=== PATIENT | male | born 2000 | race Asian ===

== ENCOUNTER 2023-03-02 00:46 | Emergency (ER) | payer OTHER, SELFPAY ==
[2023-03-02] VITALS (26 sets, daily range): BP systolic 109–139; BP diastolic 42–92; PULSE 73–97; RESP 13–22; TEMP 36.3–36.9; O2SAT 98–100
--- NOTE | ~2023-03-02 | XR_ITS ---
EXAMINATION: XR shoulder RT min 2V DATE: 03/02/2023 03:54 INDICATION: Right shoulder dislocation status post reduction. TECHNIQUE: 2 views of right shoulder were obtained. COMPARISON: Right shoulder radiographs at 1:00 AM. FINDINGS: Bone alignment is normal. There is an impaction fracture deformity of posterolateral aspect of humeral head (Hill-Sachs fracture deformity). There is mild osteoarthritis of acromioclavicular j oint. Glenohumeral joint is normal. IMPRESSION: 1. Normal alignment at glenohumeral joint. 2. Hill-Sachs fracture deformity. Reviewed, dictated and finalized at location E.
--- NOTE | ~2023-03-02 | XR_ITS ---
EXAMINATION: XR shoulder RT min 2V DATE: 03/02/2023 01:06 INDICATION: Right shoulder injury and pain. TECHNIQUE: 2 views of right shoulder were obtained. COMPARISON: None. FINDINGS: There is anterior dislocation of humeral head with respect to glenoid. No visible fracture. There is mild osteoarthritis of acromioclavicular joint. IMPRESSION: 1. Anterior right shoulder dislocation. Reviewed, dictated and finalized at location E.
[2023-03-02] MEDS: IBUPROFEN 400 MG TABLET PO (01:27)
--- NOTE | 2023-03-02 01:48 | ED.UPPEXIN ---
HPI - Extremity Injury (Upper) General Chief Complaint: Extremity Injury, Upper Stated Complaint: right hand injury Time Seen by Provider: 03/02/23 01:12 Source: patient Limitations: no limitations History of Present Illness HPI narrative: Patient is a 22-year-old male presents to the emergency department complaining of a right shoulder injury. Patient states just prior to arrival he was holding onto the railing of some steps and he slipped but ended up holding onto the railing and developed pain in his right shoulder with decreased mobility signs. Patient denies history of shoulder injuries or dislocations. Patient denies numbness, weakness, recent illness, recent injuries. Patient denies hitting his head or passing out. Patient has not taken anything for the pain and notes that the pain is over his right shoulder and is nonradiating. Related Data Allergies Allergy/AdvReac Type Severity Reaction Status Date / Time No Known Allergies Allergy Verified 03/02/23 01:12 Review of Systems Review of Systems: A 10 system review of systems was completed on the patient and is negative except for what is stated in the HPI. Nursing and ancillary documentation was reviewed. PMFSH Comments At time of signature, I have reviewed and agree with nursing past medical, surgical, social and family history unless otherwise noted. Please see the nursing chart for further information. There is no relevant family history pertinent to the presenting complaint. Exam Narrative: CONST: No acute distress. Well nourished. HENMT: Head is normocephalic and atraumatic. Moist mucous membranes. No posterior oropharynx erythema. EYES: No conjunctival icterus, injection, or pallor. PERRL. NECK: No meningeal signs. RESP: Able to speak in full sentences. Normal respiratory effort. CTAB. CARDIO: Regular rate. Regular rhythm. 2+ DP and radial pulses bilaterally. GI: Nondistended. No tenderness to palpation. Soft. : No CVA tenderness to palpation. SKIN: No rashes or lesions noted on exposed skin. NEURO: Oriented x3. Moves all extremities. Sensation intact to light touch throughout the axillary and median and radial and ulnar nerve distributions. EXTREM: No pedal edema. Mild tenderness to palpation of the right shoulder diffusely, empty sulcus on palpation. Patient is holding his right upper extremity in abduction. Patient is able to flex the bilateral elbows and extend them without difficulty and has 5 out of 5 show girl strength in bilateral hands. Range of motion limited secondary to pain of the right shoulder. PSYCH: Normal affect. Course Vital Signs Vital signs: Vital Signs Temperature 97.3 F L 03/02/23 00:49 Pulse Rate 90 03/02/23 00:49 Respiratory Rate 18 03/02/23 00:49 Blood Pressure 129/81 03/02/23 00:49 Pulse Oximetry 98 03/02/23 00:49 Oxygen Delivery Room Air 03/02/23 00:49 Temperature 98.1 F 03/02/23 04:14 Pulse Rate 78 03/02/23 04:14 Respiratory Rate 15 03/02/23 04:14 Blood Pressure 120/78 03/02/23 04:14 Pulse Oximetry 100 03/02/23 04:14 Oxygen Delivery Room Air 03/02/23 04:14 Oxygen Flow Rate 2 03/02/23 03:44 Procedures Orthopedic Joint Reduction Joint #1: Orthopedic Joint Reduction Date: 03/02/23 Orthopedic Joint Reduction Time: 03:45 Time Out Performed: Yes Side: right Joint Reduction Location: shoulder Analgesia: procedural sedation Pre-Procedure Neuro Vascular Exam: normal Shoulder Technique Used (if applicable): other (Chun) Post-reduction neuro exam: intact Post-reduction vascular: intact Post Reduction X-Ray Obtained: Yes Post Reduction X-Ray Results: reduced Splint Applied: Yes Patient Tolerated Procedure: well and no complications Procedural Sedation Procedural Sedation #1: Procedural Sedation Date: 03/02/23 Procedural Sedation Time: 03:33 Presedation Evaluation
[2023-03-02] MEDS: PROPOFOL IV EMULSION 200 MG/20 ML VIAL IV PUSH (04:08)
--- NOTE | 2023-03-02 04:24 | PC.NURSE ---
0330 - timeout performed by Dr. Grant. Consent obtained. Crash cart, suction, end tidal, ambu bag in place. pt on monitor. correct pt, procedure, and location verified. 0333 - Dr. Grant pushed 8mL propofol. 0334 - intra procedure documentation started. 0339 - procedure done, no additional SM given. Dr. Grant VORB post reduction xray 0344 - post procedure documentation started.
== END 2023-03-02 04:58 | disposition home or self-care (01) ==
PROVIDERS: Emergency Provider Student in an Organized Health Care Education/Training Program
DX: S43.014A Anterior dislocation of right humerus, initial encounter (principal); W01.0XXA Fall on same level from slipping, tripping and stumbling without subsequent striking against object, initial encounter
CPT/HCPCS: 23650; 73030; 99285; A9270; J2704

== ENCOUNTER 2023-05-15 10:55 | Emergency (ER) | payer SELFPAY ==
--- NOTE | ~2023-05-15 | CT_ITS ---
EXAMINATION: CT abdomen pelvis w con DATE: 05/15/2023 12:14 INDICATION: Right upper quadrant abdominal pain. Nausea. TECHNIQUE: Computed tomography (CT) of the abdomen and pelvis was performed with 100 mL Omnipaque 350 intravenous contrast. Automated exposure control and iterative reconstruction technique were employe d. The dose-length product was 531.07 mGy-cm. COMPARISON: None. FINDINGS: The visualized portions of the lung bases are clear without pneumonia or pleural effusion. The heart size is normal. No pericardial effusion. The liver is normal. The gallbladder is absent. Th e spleen, pancreas, adrenal glands, and kidneys are normal. There are no dilated loops of bowel. The appendix is normal. There are no pathologically enlarged lymph nodes. There is no free intraperitonea l fluid. There is mild thoracic and lumbar spondylosis. IMPRESSION: 1. No etiology for the patient's symptoms. Reviewed, dictated and finalized at location A. [facility]
[2023-05-15 10:56] VITALS: BP 135/88; PULSE 79; RESP 16; TEMP 36.4; O2SAT 100
[2023-05-15 11:31] VITALS: BP 131/93; PULSE 78; RESP 16; O2SAT 100
[2023-05-15 11:40] LABS: Basophils Percent Auto 0.4 % (0.2-1.2); Eosinophils Absolute Auto 0.1 K/mm3 (0-0.3); Eosinophils Percent Auto 1.4 % (0-4.4); Hemoglobin 15.8 g/dL (14.0-18.0); Immature Granulocyte Absolute 0.01 K/mm3 (0.00-0.031); Immature Granulocyte Percent A 0.1 % (0-0.5); Lymphocytes Percent Auto 18.3 % (18.3-44.2); Mean Corpuscular HGB Conc 32.2 g/dl (32-36); Mean Corpuscular Hemoglobin 28.7 pg (26-34); Mean Corpuscular Volume 89.1 fl (80-100); Mean Platelet Volume 10.2 fl (7.4-10.4); Monocytes Absolute Auto 0.6 K/mm3 (0.1-0.6); Monocytes Percent Auto 8.3 % (2.6-8.5); Neutrophils Absolute Auto 5.1 K/mm3 (1.3-6.7); Neutrophils Percent Auto 71.5 % (45.5-73.1); Platelet Count Result 245 k/mm3 (150-375); Red Cell Distribution Width 12.3 % (11.5-14.5); White Blood Count 7.1 K/mm3 (4.5-10.0)
[2023-05-15 11:46] LABS: Appearance Urine Cloudy (Clear); Bacteria Urine None Seen /hpf; Bilirubin Urine Negative (Negative); Blood Urine Negative (Negative); Color Urine Dark Yellow (Yellow); Glucose Urine UA Negative (Negative); Ketones Urine Trace mg/dL (Negative); Leukocyte Esterase Ur 1+ LEU/UL (Negative); Nitrate Urine Negative (Negative); Protein Urine Trace mg/dL (Negative); RBC Urine 0-2 /hpf (0-2); Squamous Epithelial Cell Urine None seen /hpf (Few); WBC Urine 21-50 /hpf; pH Urine 5.5 (5.0-9.0)
[2023-05-15 11:49] LABS: Add Urine Microscopic? YES
[2023-05-15 11:50] LABS: Alanine Aminotransferase 77 U/L (6-50); Albumin Level 4.7 g/dL (3.5-5.1); Alkaline Phosphatase 77 U/L (38-126); Anion Gap 10 mmol/L (8-16); Aspartate Amino Transferase 33 U/L (17-59); Bilirubin,Total 0.8 mg/dL (0.2-1.3); Blood Urea Nitrogen 9 mg/dL (9-20); Calcium 9.5 mg/dL (8.4-10.2); Carbon Dioxide 27 mmol/L (22-30); Chloride 103 mmol/L (98-107); Estimated CRCL calculation 100 ml/min; Estimated Glomerular Filt Rate > 60; Glucose 96 mg/dL (65-110); Lipase 35 U/L (23-300); Potassium 3.9 mmol/L (3.4-5.0); Sodium 140 mmol/L (137-145)
--- NOTE | 2023-05-15 12:42 | ED.ABDPAIN ---
HPI - Abdominal Pain General Chief Complaint: Abdominal Pain Stated Complaint: abdomen Time Seen by Provider: 05/15/23 12:42 Source: patient Mode of arrival: ambulatory Limitations: no limitations History of Present Illness HPI narrative: 23 YEARS OLD MALE CAME TO THE EMERGENCY ROOM BY PRIVATE CAR COMPLAINING OF ABDOMINAL BLOATING FOR OVER 2 MONTHS, GOT PAIN RIGHT UPPER QUADRANT, EPIGASTRIC AND SOMETIMES DIFFUSE OVER THE LAST 3 DAYS ASSOCIATED WITH NAUSEA MAY BE CHILLS MAYBE FEVER. HE DENIES ANY HISTORY OF ABDOMINAL SURGERY, DOES NOT TAKE MEDICINE AT HOME. HE DENIES AGGRAVATING OR RELIEVING FACTORS MAYBE LIGHT FOOD MAKE IT FEEL BETTER Related Data Allergies Allergy/AdvReac Type Severity Reaction Status Date / Time No Known Allergies Allergy Verified 05/15/23 11:30 Review of Systems Review of Systems: All systems reviewed & are unremarkable except as noted in HPI and below PMFSH Social History Social History Smoking status: Never smoker Alcohol intake: never Substance use: never Occupation/Education: student Gender identity (if verbalized by the patient): Male Exam Narrative: GENERAL APPEARANCE: WELL-DEVELOPED, WELL-NOURISHED SKIN: NORMAL COLOR HEAD: NORMOCEPHALIC, NONTRAUMATIC EYES: CLEAR CONJUNCTIVA ENT: OROPHARYNX NORMAL, EARS NORMAL, NOSE NORMAL NECK: SUPPLE, NONTENDER CHEST AND RESPIRATORY: AIRWAY PATENT, NO RESPIRATORY DISTRESS, NO ACCESSORY MUSCLE USE HEART: REGULAR RATE/RHYTHM ABDOMEN: SOFT, SLIGHT EPIGASTRIC TENDERNESS, NO ORGANOMEGALY, QUIET BOWEL SOUNDS VASCULAR: NORMAL PERIPHERAL PULSES, NORMAL CAPILLARY REFILL. 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 Date: 05/15/23 Time: 13:25 Vital Signs Vital signs: Vital Signs Temperature 36.4 C 05/15/23 10:56 Pulse Rate 79 05/15/23 10:56 Respiratory Rate 16 05/15/23 10:56 Blood Pressure 135/88 05/15/23 10:56 Pulse Oximetry 100 05/15/23 10:56 Oxygen Delivery Room Air 05/15/23 10:56 Temperature 36.4 C 05/15/23 10:56 Pulse Rate 78 05/15/23 11:31 Respiratory Rate 16 05/15/23 11:31 Blood Pressure 131/93 H 05/15/23 11:31 Pulse Oximetry 100 05/15/23 11:31 Oxygen Delivery Room Air 05/15/23 10:56 MDM - Abdominal Pain MDM Narrative Medical decision making narrative: PATIENT PRESENTS WITH ABDOMINAL BLOATING AND PAIN, PHYSICAL EXAMINATION SHOWED EPIGASTRIC TENDERNESS, DIFFERENTIAL DIAGNOSIS INCLUDE CHOLECYSTITIS, GASTRITIS, ESOPHAGITIS, PANCREATITIS BLOOD WORKUP TODAY IS UNREMARKABLE, CT ABDOMEN AND PELVIS WITH IV CONTRAST SHOWED NO ACUTE ABNORMALITIES. GERD/GASTRITIS IS MY CONCERN DISCHARGED ON PROTONIX. Differential Diagnosis Differential diagnosis: Likely other ( ABOVE) Medical Records Attestation: I reviewed the patient's medical records. Lab Data Attestation: I reviewed the patient's lab results. 05/15/23 11:33 05/15/23 11:33 Labs: Lab Results 05/15/23 Range/Units 11:33 WBC 7.1 (4.5-10.0) K/mm3 RBC 5.50 (4.6-6.20) M/mm3 Hgb 15.8 (14.0-18.0) g/dL Hct 49.0 (42.0-52.0) % MCV 89.1 (80-100) fl MCH 28.7 (26-34) pg MCHC 32.2 (32-36) g/dl RDW 12.3 (11.5-14.5) % Plt Count 245 (150-375) k/mm3 MPV 10.2 (7.4-10.4) fl Immature Gran % (Auto) 0.1 (0-0.5) % Neut % (Auto) 71.5 (45.5-73.1) % Lymph % (Auto) 18.3 (18.3-44.2) % Nicholas % (Auto) 8.3 (2.6-8.5) % Eos % (Auto) 1.4 (0-4.4) % Baso % (Auto
[2023-05-15] MEDS: SODIUM CHLORIDE 0.9% IV 1,000 ML 999 ML IV CONT (12:52)
[2023-05-15] MEDS: MORPHINE SULFATE (*CRX) 4 MG/ML INJ IV PUSH (12:53)
[2023-05-15] MEDS: ONDANSETRON INJ 4 MG/2 ML VIAL IV PUSH (12:53)
[2023-05-18 11:04] LABS: Estimated CRCL calculation 91 ml/min; Estimated Glomerular Filt Rate > 60
== END 2023-05-15 13:55 | disposition home or self-care (01) ==
PROVIDERS: Emergency Provider Emergency Medicine
DX: R10.13 Epigastric pain (principal)
CPT/HCPCS: 36415; 74177; 80053; 81001; 82565; 83690; 85025; 87086; 87088; 96361; 96374; 96375; 99284; J2270; J2405; J7030; Q9967